=== PATIENT | female | born 1980 | race Caucasian/White ===

== ENCOUNTER 2016-06-15 12:29 | Emergency (ER) | payer BC, OTHER ==
--- NOTE | 2016-06-15 13:49 | EDDOCDS ---
Physician Documentation [facility] Name: Aylin Manning Age: 36 yrs Sex: Female : 1980 Arrival Date: 06/15/2016 Time: 12:29 Bed Triage 2 Private MD: NO PRIMARY PHYSICIAN, . Disposition: 06/15/16 13:41 Discharged to Home/Self Care. Impression: Cutaneous abscess of buttock - EARLY PILONIDAL CYST. - Condition is Stable. - Discharge Instructions: Abscess. - Prescriptions for Clindamycin HCl 300 mg Oral Capsule - take 1 capsule by ORAL route every 6 hours; 40 capsule. Colace 100 mg Oral Capsule - take 1 tablet by ORAL route every 12 hours As needed; 30 tablet. [place] 5- 325 mg Oral Tablet - take 1 tablet by ORAL route every 6 hours As needed MDD: 4 tabs; MAY CAUSE DROWSINESS. 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 - Medication Reconciliation, Local Pharmacy Hours form. - Follow up: Emergency Department; When: As needed; Reason: Worsening of conditions. [facility]; When: Call to arrange an appointment; Reason: Recheck today's complaints, Continuance of care, To establish care. - Problem is new. - Symptoms are unchanged. Historical: - Allergies: no known allergies; - Home Meds: 1. none - PMHx: none; - PSHx: D & C; Appendectomy; R wrist surgery; - Social history: Smoking status: Patient states was never smoker of tobacco. No barriers to communication noted, The patient speaks fluent Malagasy. - Family history: Not pertinent. - : The pt / caregiver states he / she is not on anticoagulants. Home medication list is obtained from the patient. - Exposure Risk Screening:: None identified. 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 6 in. (167.64 cm) (R); Pain 10/10; 12:32 Body Mass Index 43.58 (122.47 kg, 167.64 cm) gr2 MDM: 13:45 Financial registration complete. lg Signatures: Danilo Lewis, Reg Reg lg Sulaiman Stern RN RN mlb1 Stormy Dupree PA-C PA-C dt4 Elida SchmidRN RN ms18 MTDD
--- NOTE | 2016-06-15 13:49 | EDDOCDS ---
Nurse's Notes [facility] Name: Aylin Manning Age: 36 yrs Sex: Female : 1980 Arrival Date: 06/15/2016 Time: 12:29 Bed Triage 2 Private MD: NO PRIMARY PHYSICIAN, . Diagnosis: Cutaneous abscess of buttock-EARLY PILONIDAL CYST Presentation: 06/15 12:36 Presenting complaint: Patient states: that she has lower back pain and tailbone pain ms18 since yesterday morning. Pt states that she cannot sit, pt denies any injury. Adult Sepsis Screening: The patient does not have new or worsening altered mentation. Patient's respiratory rate is less than 22. Systolic blood pressure is greater than 100. Patient has a qSOFA score of 0- Negative Sepsis Screen. Suicide/Homicide risk assessment- the patient denies having any suicidal and/or homicidal ideations and does not present with any other emotional, behavioral or mental health complaints. 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 Transition of care: patient was not received from another setting of care. 12:36 Acuity: JOANNE Level 4 ms18 12:36 Method Of Arrival: Walkin/Carried/Asstd ms18 Triage Assessment: 12:38 General: Appears in no apparent distress, obese, uncomfortable, Behavior is appropriate ms18 for age, cooperative. Pain: Location: low back area and coccyx Pain currently is 10 out of 10 on a pain scale. HIV screening NA for this visit Offered previously. Neurological: Level of Consciousness is awake, alert, obeys commands, Oriented to person, place, time. Respiratory: Airway is patent Respiratory effort is even, unlabored. Derm: Skin is pink, warm & dry. 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 none - PMHx: none; - PSHx: D & C; Appendectomy; R wrist surgery; - Social history: Smoking status: Patient states was never smoker of tobacco. No barriers to communication noted, The patient speaks fluent Albanian. - Family history: Not pertinent. - : The pt / caregiver states he / she is not on anticoagulants. Home medication list is obtained from the patient. - Exposure Risk Screening:: None identified. Screenin:48 Screening information is obtained from the patient. Fall risk: No risks identified. mlb1 Assistance ADL's: requires no assistance with activities of daily living. Abuse/DV Screen: The patient / caregiver reports he/she is: not in a situation that causes fear, pain or injury. Nutritional screening: No deficits noted. Advance Directives: Currently, there is no health care proxy. home support is adequate. Assessment: 13:47 General: Appears in no apparent distress, Behavior is appropriate for age, cooperative. mlb1 Pain: Location: buttocks and coccyx Pain currently is 6 out of 10 on a pain scale. At worst was 10 out of 10 on a pain scale. Neurological: No deficits noted. Respiratory: No deficits noted. Musculoskeletal: No deficits noted. Vital Signs: 12:32 BP 144 / 86; Pulse 99; Resp 18 S; Temp 97.3(O); Pulse Ox 99% on R/A; Weight 122.47 kg gr2 (R); Height 5 ft. 6 in. (167.64 cm) (R); Pain 10/10; 12:32 Body Mass Index 43.58 (122.47 kg, 167.64 cm) gr2 Vitals: 12:32 Log In Time: June 15, 2016 at 12:32. gr2 ED Course: 12:31 Patient visited by Yenifer Regalado. gr2 12:31 Patient moved to Waiting gr2 12:32 NO PRIMARY PHYSICIAN, . is Private Physician. gr2 12:35 Patient visited by Yenifer Regalado. gr2 12:35 Patient moved to Pre RCE gr2 12:37 Triage Initiated ms18 13:10 Patient moved to Triage 2 mb9 13:28 [facility] dt4 13:28 Diallo Herring MD is Attending Physician. dt4 13:28 Patient visited by Stormy Dupree PA-C. dt4 13:41 [facility] is Referral Physician. dt4 13:48 No IV's were initiated during this patient's visit. No procedures done that require mlb1 assistance. 13:49 Patient visited by Sulaiman Stern RN. mlb1 13:49 The patient / caregiver is instructed regarding the plan of care and ED course. mlb1 Order Results: There are currently no results for this order. Outcome: 13:41 Discharge ordered by Provider. dt4 13:48 Discharge Assessment: Patient awake, alert and oriented x 3. No cognitive and/or mlb1 functional deficits noted. Patient verbalized understanding of disposition instructions. patient administered narcotics - no. The following High Risk Discharge criteria are identified: None. Discharged to home ambulatory. Condition: good. Discharge instructions given to patient, Instructed on discharge instructions, follow up and referral plans. medication usage, no driving heavy equipment, Demonstrated understanding of instructions, medications, Pt was receptive of discharge instructions/ teaching. Prescriptions given X 3. No special radiology studies were completed. Property sent home with patient. 13:49 Patient left the ED. mlb1 Signatures: Sulaiman Stern RN RN mlb1 Yenifer Regalado gr2 Stormy Dupree, PAMadi PAMadi dt4 Elida Schmid,RN RN ms18 Sulaiman Shine,RN RN mb9 MTDD
--- NOTE | 2016-06-17 14:50 | EDDOCDS ---
Nurse's Notes [facility] Name: Aylin Manning Age: 36 yrs Sex: Female : 1980 Arrival Date: 06/15/2016 Time: 12:29 Bed Triage 2 Private MD: NO PRIMARY PHYSICIAN, . Diagnosis: Cutaneous abscess of buttock-EARLY PILONIDAL CYST Presentation: 06/15 12:36 Presenting complaint: Patient states: that she has lower back pain and tailbone pain ms18 since yesterday morning. Pt states that she cannot sit, pt denies any injury. Adult Sepsis Screening: The patient does not have new or worsening altered mentation. Patient's respiratory rate is less than 22. Systolic blood pressure is greater than 100. Patient has a qSOFA score of 0- Negative Sepsis Screen. Suicide/Homicide risk assessment- the patient denies having any suicidal and/or homicidal ideations and does not present with any other emotional, behavioral or mental health complaints. 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 Transition of care: patient was not received from another setting of care. 12:36 Acuity: JOANNE Level 4 ms18 12:36 Method Of Arrival: Walkin/Carried/Asstd ms18 Triage Assessment: 12:38 General: Appears in no apparent distress, obese, uncomfortable, Behavior is appropriate ms18 for age, cooperative. Pain: Location: low back area and coccyx Pain currently is 10 out of 10 on a pain scale. HIV screening NA for this visit Offered previously. Neurological: Level of Consciousness is awake, alert, obeys commands, Oriented to person, place, time. Respiratory: Airway is patent Respiratory effort is even, unlabored. Derm: Skin is pink, warm & dry. 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 none - PMHx: none; - PSHx: D & C; Appendectomy; R wrist surgery; - Social history: Smoking status: Patient states was never smoker of tobacco. No barriers to communication noted, The patient speaks fluent Liberian. - Family history: Not pertinent. - : The pt / caregiver states he / she is not on anticoagulants. Home medication list is obtained from the patient. - Exposure Risk Screening:: None identified. Screenin:48 Screening information is obtained from the patient. Fall risk: No risks identified. mlb1 Assistance ADL's: requires no assistance with activities of daily living. Abuse/DV Screen: The patient / caregiver reports he/she is: not in a situation that causes fear, pain or injury. Nutritional screening: No deficits noted. Advance Directives: Currently, there is no health care proxy. home support is adequate. Assessment: 13:47 General: Appears in no apparent distress, Behavior is appropriate for age, cooperative. mlb1 Pain: Location: buttocks and coccyx Pain currently is 6 out of 10 on a pain scale. At worst was 10 out of 10 on a pain scale. Neurological: No deficits noted. Respiratory: No deficits noted. Musculoskeletal: No deficits noted. Vital Signs: 12:32 BP 144 / 86; Pulse 99; Resp 18 S; Temp 97.3(O); Pulse Ox 99% on R/A; Weight 122.47 kg gr2 (R); Height 5 ft. 6 in. (167.64 cm) (R); Pain 10/10; 12:32 Body Mass Index 43.58 (122.47 kg, 167.64 cm) gr2 Vitals: 12:32 Log In Time: June 15, 2016 at 12:32. gr2 ED Course: 12:31 Patient visited by Yenifer Regalado. gr2 12:31 Patient moved to Waiting gr2 12:32 NO PRIMARY PHYSICIAN, . is Private Physician. gr2 12:35 Patient visited by Yenifer Regalado. gr2 12:35 Patient moved to Pre RCE gr2 12:37 Triage Initiated ms18 13:10 Patient moved to Triage 2 mb9 13:28 Stormy Dupree PA-C is PHCP. dt4 13:28 Diallo Herring MD is Attending Physician. dt4 13:28 Patient visited by Stormy Dupree PA-C. dt4 13:41 [facility] is Referral Physician. dt4 13:48 No IV's were initiated during this patient's visit. No procedures done that require mlb1 assistance. 13:49 Patient visited by Sulaiman Stern RN. mlb1 13:49 The patient / caregiver is instructed regarding the plan of care and ED course. mlb1 14:36 [facility] Payment Agreement was scanned into [employer] and attached to record. lg 15:40 T-Sheet-- Draft Copy was scanned into [employer] and attached to record. Order Results: There are currently no results for this order. Outcome: 13:41 Discharge ordered by Provider. dt4 13:48 Discharge Assessment: Patient awake, alert and oriented x 3. No cognitive and/or mlb1 functional deficits noted. Patient verbalized understanding of disposition instructions. patient administered narcotics - no. The following High Risk Discharge criteria are identified: None. Discharged to home ambulatory. Condition: good. Discharge instructions given to patient, Instructed on discharge instructions, follow up and referral plans. medication usage, no driving heavy equipment, Demonstrated understanding of instructions, medications, Pt was receptive of discharge instructions/ teaching. Prescriptions given X 3. No special radiology studies were completed. Property sent home with patient. 13:49 Patient left the ED. mlb1 Signatures: Angie Mccurdy, Reg Reg gb Danilo Lewis, Reg Reg lg Sulaiman Stern RN RN mlb1 Yenifer Regalado gr2 Stormy Dupree, PAMadi PA-C dt4 Elida Schmid,RN RN ms18 Sulaiman Shine,RN RN mb9 Chart Complete MTDJay
--- NOTE | 2016-06-17 14:50 | EDDOCDS ---
Physician Documentation [facility] Name: Aylin Manning Age: 36 yrs Sex: Female : 1980 Arrival Date: 06/15/2016 Time: 12:29 Bed Triage 2 Private MD: NO PRIMARY PHYSICIAN, . Disposition: 06/15/16 13:41 Discharged to Home/Self Care. Impression: Cutaneous abscess of buttock - EARLY PILONIDAL CYST. - Condition is Stable. - Discharge Instructions: Abscess. - Prescriptions for Clindamycin HCl 300 mg Oral Capsule - take 1 capsule by ORAL route every 6 hours; 40 capsule. Colace 100 mg Oral Capsule - take 1 tablet by ORAL route every 12 hours As needed; 30 tablet. [place] 5- 325 mg Oral Tablet - take 1 tablet by ORAL route every 6 hours As needed MDD: 4 tabs; MAY CAUSE DROWSINESS. 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 - Medication Reconciliation, Local Pharmacy Hours form. - Follow up: Emergency Department; When: As needed; Reason: Worsening of conditions. [facility]: [facility]; When: Call to arrange an appointment; Reason: Recheck today's complaints, Continuance of care, To establish care. - Problem is new. - Symptoms are unchanged. Historical: - Allergies: no known allergies; - Home Meds: 1. none - PMHx: none; - PSHx: D & C; Appendectomy; R wrist surgery; - Social history: Smoking status: Patient states was never smoker of tobacco. No barriers to communication noted, The patient speaks fluent Kenyan. - Family history: Not pertinent. - : The pt / caregiver states he / she is not on anticoagulants. Home medication list is obtained from the patient. - Exposure Risk Screening:: None identified. 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 6 in. (167.64 cm) (R); Pain 10/10; 12:32 Body Mass Index 43.58 (122.47 kg, 167.64 cm) gr2 MDM: 13:45 Financial registration complete. lg 14:36 [facility] Payment Agreement was scanned into [employer] and attached to record. lg 15:40 T-Sheet-- Draft Copy was scanned into [employer] and attached to record. gb Signatures: Angie Mccurdy, Reg Reg gb Radha LewisMonae, Reg Reg lg Sulaiman Stern RN RN mlb1 Stormy Dupree PA-C PAMadi dt4 Elida SchmidRN RN ms18 The chart was reviewed and I authenticate all verbal orders and agree with the evaluation and treatment provided.Attachments: 14:36 [facility] Payment Agreement lg 15:40 T-Sheet-- Draft Copy gb Chart Complete MTDD
--- NOTE | 2016-06-17 14:50 | EDDOCDS ---
Physician Documentation [facility] Name: Aylin Manning Age: 36 yrs Sex: Female : 1980 Arrival Date: 06/15/2016 Time: 12:29 Bed Triage 2 Private MD: NO PRIMARY PHYSICIAN, . Disposition: 06/15/16 13:41 Discharged to Home/Self Care. Impression: Cutaneous abscess of buttock - EARLY PILONIDAL CYST. - Condition is Stable. - Discharge Instructions: Abscess. - Prescriptions for Clindamycin HCl 300 mg Oral Capsule - take 1 capsule by ORAL route every 6 hours; 40 capsule. Colace 100 mg Oral Capsule - take 1 tablet by ORAL route every 12 hours As needed; 30 tablet. [place] 5- 325 mg Oral Tablet - take 1 tablet by ORAL route every 6 hours As needed MDD: 4 tabs; MAY CAUSE DROWSINESS. 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 - Medication Reconciliation, Local Pharmacy Hours form. - Follow up: Emergency Department; When: As needed; Reason: Worsening of conditions. Follow [facility]: [facility]; When: Call to arrange an appointment; Reason: Recheck today's complaints, Continuance of care, To establish care. - Problem is new. - Symptoms are unchanged. Historical: - Allergies: no known allergies; - Home Meds: 1. none - PMHx: none; - PSHx: D & C; Appendectomy; R wrist surgery; - Social history: Smoking status: Patient states was never smoker of tobacco. No barriers to communication noted, The patient speaks fluent Swazi. - Family history: Not pertinent. - : The pt / caregiver states he / she is not on anticoagulants. Home medication list is obtained from the patient. - Exposure Risk Screening:: None identified. 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 6 in. (167.64 cm) (R); Pain 10/10; 12:32 Body Mass Index 43.58 (122.47 kg, 167.64 cm) gr2 MDM: 13:45 Financial registration complete. lg 14:36 [facility] Payment Agreement was scanned into [employer] and attached to record. lg 15:40 T-Sheet-- Draft Copy was scanned into [employer] and attached to record. gb Signatures: Angie Mccurdy, Reg Reg gb Radha LewisMonae, Reg Reg lg Sulaiman Stern RN RN mlb1 Stormy Dupree PA-C PAMadi dt4 Elida SchmidRN RN ms18 The chart was reviewed and I authenticate all verbal orders and agree with the evaluation and treatment provided.Attachments: 14:36 [facility] Payment Agreement lg 15:40 T-Sheet-- Draft Copy gb Chart Complete MTDD
== END 2016-06-15 13:49 | disposition home or self-care (01) ==
LOC: M ED 12:29
DX: L05.91 Pilonidal cyst without abscess (principal)